=== PATIENT | male | born 1980 | race Two or more races ===

== ENCOUNTER 2019-11-06 22:44 | Emergency (ER) | payer SELFPAY ==
[~2019-11-06] VITALS: Ht 170.2 cm; Wt 60.0 kg
[~2019-11-06 22:44] MED LIST: INSU100C SQ; INSU100I17 SQ; INSU100I27 SQ; INSU100V8 SQ; METF10007 PO; RISP2TAB33 PO
--- NOTE | 2019-11-06 23:08 | PHYS DOC ---
Past Medical History Past Medical History: Anxiety, Depression, Diabetes-Type II Additional Past Medical Histor: methaphetamine addcition, iv drug use Past Surgical History: Other Additional Past Surgical Histo: left knee Smoking Status: Current Every Day Smoker Alcohol Use: Occasionally Drug Use: Marijuana, Methamphetamine General Adult EDM: Chief Complaint: HYPERGLYCEMIA HPI: HPI: Patient is a 39 year old male arrives via EMS from the crisis center with a chief complaint of hyperglycemia. Patient found to be high and was given fast acting insulin at the facility but continues to read high. Patient only complains of some right lateral lower leg pain that is atraumatic and radiates from the mid calf laterally down to the foot. Patient denies any abdominal pain nausea vomiting fevers chills cough shortness of breath. Patient states he may have not been taking his insulin as he should. Review of Systems: Review of Systems: Constitutional: Denies fever or chills. [] Eyes: Denies change in visual acuity. [] HENT: Denies nasal congestion or sore throat. [] Respiratory: Denies cough or shortness of breath. [] Cardiovascular: Denies chest pain or edema. [] GI: Denies abdominal pain, nausea, vomiting, bloody stools or diarrhea. [] : Denies dysuria. [] Musculoskeletal: Denies back pain but complains of right leg pain Integument: Denies rash. [] Neurologic: Denies headache, focal weakness or sensory changes. [] Endocrine: Complains of polyuria Lymphatic: Denies swollen glands. [] Psychiatric: Denies depression or anxiety. [] Heart Score: Risk Factors: Risk Factors: DM, Current or recent (<one month) smoker, HTN, HLP, family history of CAD, obesity. Risk Scores: Score 0 - 3: 2.5% MACE over next 6 weeks - Discharge Home Score 4 - 6: 20.3% MACE over next 6 weeks - Admit for Clinical Observation Score 7 - 10: 72.7% MACE over next 6 weeks - Early Invasive Strategies Current Medications: Current Medications Medications (Trade) Dose Ordered Sig/Jonnathan Start Time Stop Time Status Last Admin Dose Admin Sodium Chloride 1,000 ml @ 1,000 mls/hr 1X ONCE 11/06/19 23:15 11/07/19 00:14 UNV Allergies: Allergies: Allergies Coded Allergies Type Severity Reaction Last Updated Verified No Known Drug Allergies 04/16/15 No Physical Exam: PE: Constitutional: Well developed, well nourished, no acute distress, non-toxic appearance. [] HENT: Normocephalic, atraumatic, bilateral external ears normal, no trismus nose normal. [] Eyes: PERRLA, EOMI, conjunctiva normal, no discharge. [] Neck: Normal range of motion, no tenderness, supple, no stridor. [] Cardiovascular:Heart rate regular rhythm, capillary refill is brisk peripheral pulses intact Lungs & Thorax: Bilateral breath sounds clear, no respiratory distress Abdomen: soft, no tenderness, no masses, no pulsatile masses. [] Skin: Warm, dry, no erythema, no rash. [] Back: No tenderness, no CVA tenderness. [] Extremities: No tenderness, no cyanosis, no clubbing, ROM intact, no edema. [] Neurologic: Alert and oriented X 3, normal motor function, normal sensory function, no focal deficits noted. [] Psychologic: Affect normal, judgement normal, mood normal. [] Current Patient Data: Labs: Laboratory Tests Test 11/06/19 23:01 11/07/19 00:15 11/07/19 01:00 11/07/19 01:59 O2 Saturation 96 % Arterial Blood pH 7.44 Arterial Blood pCO2 at Patient Temp 45 mmHg Arterial Blood pO2 at Patient Temp 86 mmHg Arterial Blood HCO3 29 mmol/L Arterial Blood Base Excess 5 mmol/L Oxyhemoglobin 94.9 % Methemoglobin 0.5 % Carbon Monoxide, Quantitative 0.9 % FiO2 21 White Blood Count 8.0 x10^3/uL Red Blood Count 4.11 x10^6/uL Hemoglobin 12.6 g/dL Hematocrit 35.7 % Mean Corpuscular Volume 87 fL Mean Corpuscular Hemoglobin 31 pg Mean Corpuscular Hemoglobin Concent 35 g/dL Red Cell Distribution Width 11.9 % Platelet Count 173 x10^3/uL Neutrophils (%) (Auto) 62 % Lymphocytes (%) (Auto) 28 % Monocytes (%) (Auto) 7 % Eosinophils (%) (Auto) 3 % Basophils (%) (Auto) 1 % Neutrophils # (Auto) 4.9 x10^3/uL Lymphocytes # (Auto) 2.2 x10^3/uL Monocytes # (Auto) 0.5 x10^3/uL Eosinophils # (Auto) 0.2 x10^3/uL Basophils # (Auto) 0.1 x10^3/uL Platelet Estimate Adequate Giant Platelets Occ Sodium Level 129 mmol/L Potassium Level 3.8 mmol/L Chloride Level 96 mmol/L Carbon Dioxide Level 30 mmol/L Anion Gap 3 Blood Urea Nitrogen 19 mg/dL Creatinine 1.1 mg/dL Estimated GFR (Cockcroft-Gault) 74.9 BUN/Creatinine Ratio 17 Glucose Level 476 mg/dL Calcium Level 8.4 mg/dL Total Bilirubin 0.5 mg/dL Aspartate Amino Transf (AST/SGOT) 51 U/L Alanine Aminotransferase (ALT/SGPT) 100 U/L Alkaline Phosphatase 148 U/L Total Protein 6.1 g/dL Albumin 3.0 g/dL Albumin/Globulin Ratio 1.0 Lipase 231 U/L Urine Collection Type Unknown Urine Color Yellow Urine Clarity Clear Urine pH 5.5 Urine Specific [place] >=1.030 Urine Protein Negative mg/dL Urine Glucose (UA) >=1000 mg/dL Urine Ketones (Stick) Trace mg/dL Urine Blood Negative Urine Nitrite Negative Urine Bilirubin Negative Urine Urobilinogen Dipstick 1.0 mg/dL Urine Leukocyte Esterase Negative Urine RBC 0 /HPF Urine WBC Rare /HPF Urine Squamous Epithelial Cells None /LPF Urine Bacteria 0 /HPF Glucose (Fingerstick) 251 mg/dL Current Medications Medications (Trade) Dose Ordered Sig/Jonnathan Route PRN Reason Start Time Stop Time Status Last Admin Dose Admin Sodium Chloride 1,000 ml @ 1,000 mls/hr 1X ONCE IV 11/06/19 23:15 11/07/19 00:14 DC 11/06/19 23:24 Sodium Chloride 1,000 ml @ 1,000 mls/hr 1X ONCE IV 11/07/19 01:00 11/07/19 01:59 DC 11/07/19 01:13 Insulin Human Regular (HumuLIN R VIAL) 10 unit 1X ONCE IV 11/07/19 01:00 11/07/19 01:01 DC 11/07/19 01:13 Laboratory Tests Test 11/06/19 23:01 11/07/19 00:15 11/07/19 01:00 11/07/19 01:59 O2 Saturation 96 % Arterial Blood pH 7.44 Arterial Blood pCO2 at Patient Temp 45 mmHg Arterial Blood pO2 at Patient Temp 86 mmHg Arterial Blood HCO3 29 mmol/L Arterial Blood Base Excess 5 mmol/L Oxyhemoglobin 94.9 % Methemoglobin 0.5 % Carbon Monoxide, Quantitative 0.9 % FiO2 21 White Blood Count 8.0 x10^3/uL Red Blood Count 4.11 x10^6/uL Hemoglobin 12.6 g/dL Hematocrit 35.7 % Mean Corpuscular Volume 87 fL Mean Corpuscular Hemoglobin 31 pg Mean Corpuscular Hemoglobin Concent 35 g/dL Red Cell Distribution Width 11.9 % Platelet Count 173 x10^3/uL Neutrophils (%) (Auto) 62 % Lymphocytes (%) (Auto) 28 % Monocytes (%) (Auto) 7 % Eosinophils (%) (Auto) 3 % Basophils (%) (Auto) 1 % Neutrophils # (Auto) 4.9 x10^3/uL Lymphocytes # (Auto) 2.2 x10^3/uL Monocytes # (Auto) 0.5 x10^3/uL Eosinophils # (Auto) 0.2 x10^3/uL Basophils # (Auto) 0.1 x10^3/uL Platelet Estimate Adequate Giant Platelets Occ Sodium Level 129 mmol/L Potassium Level 3.8 mmol/L Chloride Level 96 mmol/L Carbon Dioxide Level 30 mmol/L Anion Gap 3 Blood Urea Nitrogen 19 mg/dL Creatinine 1.1 mg/dL Estimated GFR (Cockcroft-Gault) 74.9 BUN/Creatinine Ratio 17 Glucose Level 476 mg/dL Calcium Level 8.4 mg/dL Total Bilirubin 0.5 mg/dL Aspartate Amino Transf (AST/SGOT) 51 U/L Alanine Aminotransferase (ALT/SGPT) 100 U/L Alkaline Phosphatase 148 U/L Total Protein 6.1 g/dL Albumin 3.0 g/dL Albumin/Globulin Ratio 1.0 Lipase 231 U/L Urine Collection Type Unknown Urine Color Yellow Urine Clarity Clear Urine pH 5.5 Urine Specific [place] >=1.030 Urine Protein Negative mg/dL Urine Glucose (UA) >=1000 mg/dL Urine Ketones (Stick) Trace mg/dL Urine Blood Negative Urine Nitrite Negative Urine Bilirubin Negative Urine Urobilinogen Dipstick 1.0 mg/dL Urine Leukocyte Esterase Negative Urine RBC 0 /HPF Urine WBC Rare /HPF Urine Squamous Epithelial Cells None /LPF Urine Bacteria 0 /HPF Glucose (Fingerstick) 251 mg/dL Current Medications Medications (Trade) Dose Ordered Sig/Jonnathan Route PRN Reason Start Time Stop Time Status Last Admin Dose Admin Sodium Chloride 1,000 ml @ 1,000 mls/hr 1X ONCE IV 11/06/19 23:15 11/07/19 00:14 DC 11/06/19 23:24 Sodium Chloride 1,000 ml @ 1,000 mls/hr 1X ONCE IV 11/07/19 01:00 11/07/19 01:59 DC 11/07/19 01:13 Insulin Human Regular (HumuLIN R VIAL) 10 unit 1X ONCE IV 11/07/19 01:00 11/07/19 01:01 DC 11/07/19 01:13 Vital Signs: Vital Signs Date Time Temp Pulse Resp B/P (MAP) Pulse Ox O2 Delivery O2 Flow Rate FiO2 11/07/19 01:52 60 12 126/86 (99) 99 11/07/19 01:22 60 12 128/73 (91) 99 11/07/19 00:52 62 13 117/82 (94) 99 11/07/19 00:19 66 13 127/80 (96) 99 11/06/19 23:30 74 14 127/80 (96) 98 11/06/19 22:55 97.6 76 43 122/76 (91) 100 Room Air 97.6 EKG: EKG: EKG interpreted by me normal sinus rhythm with a rate of 73 normal axis normal intervals nonspecific ST changes [] Radiology/Procedures: Radiology/Procedures: [] Course & Med Decision Making: Course & Med Decision Making Pertinent Labs and Imaging studies reviewed. (See chart for details) [] 39-year-old male presents from the crisis center with a chief complaint of hyperglycemia. Patient has no evidence of DKA. Patient given 2 L of fluid and 10 of insulin. Repeat blood sugar is 250. Patient is not in DKA and clinically stable to go back to the crisis center. Dragon Disclaimer: Dragon Disclaimer: This electronic medical record was generated, in whole or in part, using a voice recognition dictation system. Departure Departure Impression: Primary Impression: Hyperglycemia Disposition: 01 HOME, SELF-CARE Condition: STABLE Referrals: NEGRITA DAVALOS (PCP) 2-3 DAYS Patient Instructions: Hyperglycemia Additional Instructions: EMERGENCY DEPARTMENT GENERAL DISCHARGE INSTRUCTIONS THANK YOU for coming to [facility] Emergency Department (ED) today and trusting us with your care. We trust that you had a positive experience in our Emergency Department. If you wish to speak to the department Management you can contact the music department chair at . YOUR FOLLOW UP INSTRUCTIONS ARE FOLLOWS: Do you have a private doctor? If you do not have a private doctor, please ask for a resource list of physicians or clinics that may be able to assist you with follow up care. The Emergency Physician has interpreted your x-rays. The X-ray specialist will also review them. If there is a change in the findings you will be notified in 48 hours when at all possible. A lab test or lab culture may have been done, your results will be reviewed and you will be notified if you need a change in treatment. ADDITIONAL INSTRUCTIONS AND INFORMATION Your care today has been supervised by a physician who is specially trained in emergency care. Many problems require more than one evaluation for a complete diagnosis and treatment. We recommend that you schedule your follow up appointment as recommended to ensure complete treatment of your illness or injury. If you are unable to obtain follow up care and continue to have a problem, or if your condition worsens we recommend that you return to the ED. We are not able to safely determine your condition over the phone nor are we able to give sound medical advice over the phone. For these safety reasons, if you call for medical advice we will ask you to come to the ED for further evaluation If you have any questions regarding these discharge instructions please call the ED at . SAFETY INFORMATION In the interest of safety, wellness, and injury prevention; we encourage you to wear your seatbelt, if you smoke; quit smoking, and we encourage your family to use protective helmet for bicycling and other sporting events that present an increased risk for head injury. IF YOUR SYMPTOMS WORSEN OR NEW SYMPTOMS DEVELOP, OR YOU HAVE CONCERNS ABOUT YOUR CONDITION; OR IF YOUR CONDITION WORSENS WHILE YOU ARE WAITING FOR YOUR FOLLOW UP APPOINTMENT; EITHER CONTACT YOUR PRIMARY CARE DOCTOR, THE PHYSICIAN WHOSE NAME AND NUMBER YOU WERE GIVEN, OR RETURN TO THE ED IMMEDIATELY. Justicifation of Admission Dx: Justifications for Admission: Justification of Admission Dx: N/A ASHLY DICKEY MD Nov 06, 2019 23:08
[2019-11-06] MEDS ORDERED: IV NORMAL SALINE 1000ML BAG 1,000 ML IV ONE (23:15)
[2019-11-06 23:57] LABS: BASE EXCESS COOX 5 mmol/L (-3-3); HCO3 COOX 29 mmol/L (21-28); METHEMOGLOBIN 0.5 % (0.0-1.9); OXYHEMOGLOBIN 94.9 %; PCO2 COOX 45 mmHg (35-46); PO2 COOX 86 mmHg (85-108); SAT O2 COOX 96 % (92-99)
[2019-11-07 00:32] LABS: BASO # 0.1 x10^3/uL (0.0-0.2); BASO % 1 % (0-3); EOS # 0.2 x10^3/uL (0.0-0.7); EOS % 3 % (0-3); HEMATOCRIT 35.7 % (39.0-53.0); LYMPH # 2.2 x10^3/uL (1.0-4.8); LYMPH % 28 % (24-48); MEAN CORPUSCULAR VOLUME 87 fL (79-100); MONO # 0.5 x10^3/uL (0.0-1.1); MONO % 7 % (0-9); NEUT # 4.9 x10^3/uL (1.8-7.7); NEUT % 62 % (31-73); PLATELET COUNT 173 x10^3/uL (140-400); RED BLOOD COUNT 4.11 x10^6/uL (4.30-5.70); RED CELL DISTRIBUTION WIDTH 11.9 % (11.5-14.5)
[2019-11-07 00:40] LABS: CALCIUM 8.4 mg/dL (8.5-10.1); CREATININE 1.1 mg/dL (0.7-1.3); GFR 74.9; POTASSIUM 3.8 mmol/L (3.5-5.1)
[2019-11-07 00:45] LABS: TOTAL BILIRUBIN 0.5 mg/dL (0.2-1.0); TOTAL PROTEIN 6.1 g/dL (6.4-8.2)
[2019-11-07] MEDS ORDERED: INSULIN REGULAR 100 UNIT/ML 3ML VIAL. IV ONE (01:00)
[2019-11-07] MEDS ORDERED: IV NORMAL SALINE 1000ML BAG 1,000 ML IV ONE (01:00)
[2019-11-07 01:03] LABS: HEMOGLOBIN 12.6 g/dL (13.0-17.5); MEAN CORPUSCULAR HEMOGLOBIN 31 pg (25-35); MEAN CORPUSCULAR HGB CONC 35 g/dL (31-37)
[2019-11-07 01:14] LABS: BILIRUBIN,URINE NEGATIVE (NEG); CLARITY,URINE CLEAR; COLOR,URINE YELLOW; NITRITE,URINE NEGATIVE (NEG); PH,URINE 5.5 (<5.0-8.0); PROTEIN,URINE NEGATIVE (NEG-TRACE)
[2019-11-07 01:22] LABS: BACTERIA,URINE 0 /HPF (0-FEW); RBC,URINE 0 /HPF (0-2); WBC,URINE RARE /HPF (0-4)
[2019-11-07 01:34] LABS: PLT ESTIMATE ADEQUATE (ADEQUATE)
[2019-11-07 03:22] VITALS: BP 120/82
--- NOTE | 2019-11-07 08:06 | EKG ---
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
== END 2019-11-07 03:30 | disposition home or self-care (01) ==
LOC: ER 22:44
DX: E11.65 Type 2 diabetes mellitus with hyperglycemia (principal); M79.661 Pain in right lower leg; F32.9 Major depressive disorder, single episode, unspecified; F41.9 Anxiety disorder, unspecified; F17.200 Nicotine dependence, unspecified, uncomplicated
CPT/HCPCS: 36415; 36600; 80053; 81001; 82805; 82962; 83690; 85025; 93005; 96361; 96374; 99285; J1815; J7030